=== PATIENT | male | born 1975 | race Caucasian/White ===

== ENCOUNTER 2022-05-28 07:30 | Observation (INO) ==
[2022-05-28] MEDS ORDERED: ANCEF VIAL 1 GRAM ONE (10:49)
[2022-05-28] MEDS ORDERED: NS 100 ML IV 100 ML ONE (10:50)
[2022-05-28] MEDS ORDERED: NS 1,000 ML IV 1,000 ML ONE (10:50)
[2022-05-28 11:09] VITALS: BMI 46.5
[2022-05-28] MEDS ORDERED: NovoLIN R (or HumuLIN R) ONE (11:29)
[2022-05-28] MEDS ORDERED: MARCAINE/EPINEPHRINE ONE (12:03)
[2022-05-28] MEDS ORDERED: BYFAVO INJ IVP ONE (12:03)
[2022-05-28] MEDS ORDERED: NAROPIN 0.75% EPI ONE (12:03)
[2022-05-28] MEDS ORDERED: VERSED ONE ×2 (12:48→13:39)
[2022-05-28] MEDS ORDERED: XYLOCAINE 1 % (PLAIN) ONE ×2 (13:05→13:06)
[2022-05-28] MEDS ORDERED: DIPRIVAN VIAL 20 ML ONE ×2 (13:38→16:01)
[2022-05-28] MEDS ORDERED: FENTANYL VIAL INJ 100 mcg ONE (13:39)
[2022-05-28] MEDS ORDERED: MARCAINE 0.25% INJ ONE (13:42)
[2022-05-28] MEDS ORDERED: REGLAN INJ 10 MG VIAL ONE (13:43)
[2022-05-28] MEDS ORDERED: ZOFRAN INJ 4 MG VIAL ONE (13:43)
[2022-05-28] MEDS ORDERED: PEPCID 20 MG VIAL ONE (13:43)
[2022-05-28] MEDS ORDERED: BETADINE SOLN ONE (14:06)
[2022-05-28] MEDS ORDERED: KETAMINE HCL ONE (14:14)
[2022-05-28] MEDS ORDERED: DIPRIVAN VIAL 40 ML ONE (14:38)
[2022-05-28] MEDS ORDERED: DILAUDID INJ ONE (14:43)
[2022-05-28] MEDS ORDERED: TYLENOL 325 MG TAB PO PRN (16:38)
[2022-05-28] MEDS ORDERED: ZOFRAN INJ 4 MG VIAL IVP PRN (16:38)
[2022-05-28] MEDS ORDERED: PERCOCET TAB 5/325 MG PO PRN (16:38)
[2022-05-28] MEDS: TORADOL 30 MG VIAL IVP SCH ×2 (17:35→22:41)
[2022-05-28] MEDS: NS 1,000 ML IV 1,000 ML IV SCH (17:35)
[2022-05-28] MEDS: NEURONTIN CAP 300 MG PO SCH (20:24)
[2022-05-28] MEDS: COLACE CAP 100 MG PO SCH (20:25)
[2022-05-28] MEDS: MORPHINE SULFATE INJ 4 MG IVP PRN (20:26)
[2022-05-29] MEDS: MORPHINE SULFATE INJ 4 MG IVP PRN ×3 (03:41→13:01)
[2022-05-29] MEDS: TORADOL 30 MG VIAL IVP SCH ×2 (04:55→11:20)
[2022-05-29 06:21] LABS: BLOOD UREA NITROGEN 19 mg/dL (7-18); CALCIUM 8.9 mg/dL (8.5-10.1); CHLORIDE 101 mmol/L (98-107); COR NA(FOR HYPERGLY) 141 mmol/L (136-145); CREATININE 0.92 mg/dL (0.70-1.30); SODIUM 138 mmol/L (136-145); eGFR NON BLACK RACES > 60 (>60)
[2022-05-29] MEDS: NEURONTIN CAP 300 MG PO SCH ×2 (09:37→20:16)
[2022-05-29] MEDS ORDERED: NS IRRIGATION* 500 ML IR ONE (12:43)
[2022-05-29] MEDS: PERCOCET TAB 5/325 MG PO PRN ×2 (15:36→22:21)
--- NOTE | 2022-05-29 19:46 | NOTE.SOAP ---
Soap Note Note for Day of Date of Exam: 05/29/22 Subjective Data Subjective Data: Patient seen bedside today with spouse present. Patient is resting in bed with foot elevated on pillows and dressing intact to right lower extremity. Patient states he did have pain throughout the night, but was able to get some sleep. He denies any other post operative complications at this time. Patient states he is worried about going home and wishes to stay another day in the hospital. 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 Denies f,c,n,v,sob, and cp at time of interview. Objective Data Objective Data: LE Focused Exam: External fixator in place on right foot and in orthogonal alignment to limb. S tuts locked in position, no motion throughout frame at this time. Vasc: DP and PT pulses palpable. CFT is maintained at preoperative levels to digits. Moderate right lower extremity swelling with signs of venous stasis. Derm: Brawny discoloration of bilateral legs. Pin and wire tracts do not appear infected at this time. Moderate sanguineous drainage from lateral right ankle incision. Sutures intact. Skin edges in good aposition. Neuro: Protective sensation maintained at preoperative levels. No focal deficits identified. MSK: Pain on palpation of right foot and ankle. Able to wiggle digits and move knee through ROM without pain. Assessment Assessment: -S/P External Fixator Application for Recalcitrant Clubfoot Deformity (DOS 05-28-22) -Opiate Tolerance / Dependent - Has pain management contract and takes [place] 10 Q6H daily. Plan Plan: -Patient is okay for DC today from a foot and ankle POV when medically cleared. Patient wants to stay another day, as he does not feel fully comfortable returning home yet. I did discuss this with him and I am okay with him staying as long as primary team is okay with this. I did also discuss case with Dr. Malone today. -Dressing changed today by myself and nursing team. -Drain pulled from right ankle without incident. Approximately 5cc of sanguineous drainage in canister. -Discussed post op care with patient and provided written instructions. -Wrote for Percocet 10 Q4H for 6 days, Zofran, and Lovenox 40. -Wrote for 4 legged walker DME. Patient has crutches and wheel chair at home which he wishes to use. -Follow up in clinic with Dr. Ann within 7 days, appt card provided in chart.
[2022-05-29] MEDS: TORADOL 30 MG VIAL IVP PRN (19:48)
[2022-05-29] MEDS: NS 1,000 ML IV 1,000 ML IV SCH (20:15)
[2022-05-29] MEDS: LOVENOX INJ 40 MG SYR SC SCH (20:16)
[2022-05-29] MEDS: COLACE CAP 100 MG PO SCH (20:16)
[2022-05-30] MEDS: PERCOCET TAB 5/325 MG PO PRN ×2 (02:30→07:50)
[2022-05-30] MEDS: TORADOL 30 MG VIAL IVP PRN ×2 (05:30→10:39)
[2022-05-30 06:16] LABS: BASOPHILS % (AUTO) 0.5 % (0.2-1.0); EOSINOPHILS # (AUTO) 0.2 x10^3/uL (0.0-0.2); EOSINOPHILS % (AUTO) 3.8 % (0.9-2.9); HEMATOCRIT 25.6 % (42.0-54.0); HEMOGLOBIN 8.7 g/dL (13.5-18.0); LYMPHOCYTES # (AUTO) 1.7 X10^3/uL (1.3-2.9); LYMPHOCYTES % (AUTO) 28.3 % (21.0-51.0); MEAN CORPUSCULAR HEMOGLOBIN 27.3 pg (27.0-34.0); MEAN CORPUSCULAR HGB CONC 34.1 g/dL (33.0-35.0); MEAN CORPUSCULAR VOLUME 80.2 fL (80.0-100.0); MONOCYTES % (AUTO) 17.7 % (0.0-13.0); NEUTROPHILS # (AUTO) 2.9 x10^3/uL (2.2-4.8); NEUTROPHILS % (AUTO) 49.7 % (42.0-75.0); RED BLOOD COUNT 3.19 X10^6/uL (4.7-6.0); RED CELL DISTRIBUTION WIDTH 18.4 % (11.6-16.5); WHITE BLOOD COUNT 5.9 X10^3/uL (3.6-10.0)
[2022-05-30 09:00] VITALS: BP 126/67
[2022-05-30] MEDS: NEURONTIN CAP 300 MG PO SCH (09:58)
[2022-05-30] MEDS: LOVENOX INJ 40 MG SYR SC SCH (09:58)
== END 2022-05-30 11:10 | disposition home or self-care (01) ==
LOC: MED/SURG → EDUNIT# 07:30
PROVIDERS: ADMIT Obstetrics & Gynecology Obstetrics; ATTEND Obstetrics & Gynecology Obstetrics
PROC: APEXFIX (2022-05-28 07:45)
PROC: ACHTENR (ICD-10-PCS; 2022-05-28 07:45)
DX: M24.572 Contracture, left ankle; L89.894 Pressure ulcer of other site, stage 4; R73.09 Other abnormal glucose; M21.172 Varus deformity, not elsewhere classified, left ankle